=== PATIENT | female | born 1935 | race Two or more races ===

== ENCOUNTER 2019-09-15 19:32 | Inpatient (IN) | payer OTHER ==
[~2019-09-15] VITALS: Ht 165.1 cm; Wt 45.4 kg
[2019-09-15] MEDS ORDERED: ZOFRAN8 MG PO (19:48)
[2019-09-15] MEDS ORDERED: PERCOCET 5-3251 TAB PO (19:49)
[2019-09-15] MEDS ORDERED: BACLOFEN10 MG PO (19:49)
[2019-09-15] MEDS ORDERED: WELLBUTRIN XL150 M1 PO (19:50)
[2019-09-15] MEDS ORDERED: ROPINIROLE HCL0.5 MG PO (19:50)
[2019-09-15] MEDS ORDERED: CYCLOBENZAPRINE5 MG PO (19:50)
[2019-09-15] MEDS ORDERED: COUMADIN2.5 MG PO (19:51)
[2019-09-15] MEDS ORDERED: ATARAX 25 MG TA25 MG PO (19:51)
[2019-09-15] MEDS ORDERED: FLUTICASONE PRO16 GM NASAL (19:52)
[2019-09-15] MEDS ORDERED: PEPTO-BISM525 MG/15 PO (19:52)
[2019-09-15] MEDS ORDERED: VENTOLIN HFA [SP8 GM INH (19:53)
[2019-09-15] MEDS ORDERED: TRELEGY ELLIPT1 EACH INH (19:53)
[2019-09-15] MEDS ORDERED: IPRAT-ALBUT 0.5-3 ML UPD (19:55)
--- NOTE | 2019-09-15 19:59 | NUR ---
CALLED AND SPOKE TO HOSPICE NURSE MARCOS- WILL BE HERE IN APPROX 1 HOUR TO WRITE ADMISSION ORDERS.
--- NOTE | 2019-09-15 20:50 | NUR ---
PT AWAKE IN BED. KEEPS STATING "IT'S BEEPING." DOES SHAKE HEAD YES WHEN ASKED IF SHE WAS IN PAIN. PAIN MED ADMINISTERED. BED ALARM ATTACHED TO PATIENT. RAILS UP X 2. CALL LIGHT IN REACH.
[2019-09-15 21:41] VITALS: BP 133/70
[2019-09-15 23:42] VITALS: BP 128/71
--- NOTE | 2019-09-16 00:58 | NUR ---
PLACED 18 GUAGE NEVILLE CATHETER PER ORDER WITH IMMEDIATE RETURN OF YELLOW / CLOUDY URINE.
[2019-09-16 02:20] VITALS: BP 130/57; BMI 16.6
--- NOTE | 2019-09-16 07:36 | NUR ---
PATIENT IS YELLING OUT HELP ME AND ROLLING IN BED. MEDS ORDERED FOR PAIN PER MAR.
[2019-09-16 08:28] VITALS: BP 104/54
--- NOTE | 2019-09-16 08:55 | NUR ---
YELLING OUT HELP AGAIN, SAYING IT HURT. VERY ANXIOUS TRYING TO GET OUT OF BED. MEDS PER MAR.RESPIRATIONS LABORED AND VERY WET SOUNDING,MEDS PER MAR.
--- NOTE | 2019-09-16 14:25 | NUR ---
RESTING, WITHOUT SIGNS OF DISTRESS
--- NOTE | 2019-09-16 15:24 | NUR ---
RESTING IN BED, NO DISTRESS NOTED, RESEARCH EXECUTIVE IN PLACE INFUSING AT 0.5 CONT. CONT TO MONITOR, TURN PRN
--- NOTE | 2019-09-16 19:00 | NUR ---
BEDSIDE REPORT RECEIVED AND CARE OF PT ASSUMED. PT LYING IN SUPINE POSITION WITH EYES CLOSED. O2 IN USE VIA NC AT 4L. IV TO LEFT WRIST PATENT WITH NS INFUSING AT KVO, AND DILAUDID LEAD QUALITY CONTROL TECHNICIAN IN USE FOR PAIN. NEVILLE CATHETER DRAINING TO GRAVITY WITH DARK URINE IN COLLECTION BAG. WILL MONITOR FOR NEEDS.
[2019-09-16 20:00] VITALS: BP 94/45
--- NOTE | 2019-09-16 21:23 | NUR ---
SPO2 DOWN TO 75% WITH NC IN NOSE...PT IS MOUTH BREATHING SO I MOVED THE NC TO HER MOUTH...SPO2 UP TO 89% AT THIS TIME.
--- NOTE | 2019-09-17 00:45 | NUR ---
GAVE TYLENOL SUPPOSITORY FOR ELEVATED TEMP PER PRN ORDER. POSITIONED FOR COMFORT.
--- NOTE | 2019-09-17 02:00 | NUR ---
PLACED CONTINUOUS PULSE OX ON PT PORTABLE UNITS NOT MEASURING ACCURATELY DUE TO COLD FINGERS. SPO2 96% W/ PULSE OF 75 AT THIS TIME.
--- NOTE | 2019-09-17 07:24 | NUR ---
PT RESTING PEACEFULLY EVEN RISE AND FALL OF CHEST, O2 AT 6L HF, IV IN LEFT WRIST N/S AT 30 CONTINUOUS RESERVATION MANAGER, NEVILLE IN PLACE, CL NEXT TO PT, ASSUME PT CARE
--- NOTE | 2019-09-17 07:48 | NUR ---
PER BROADCAST FIELD SUPERVISOR, PT TEMP AXILLAR IS 104.3, PT IS HOSPICE PT WILL PAGE HOSPICE AND NOTIFY. CONTINUE WITH PLAN OF CARE
[2019-09-17 08:25] VITALS: BP 90/42
[2019-09-17 10:53] VITALS: Ht 165.1 cm; Wt 45.4 kg
--- NOTE | 2019-09-17 15:43 | NUR ---
TURNED PT TO RT SIDE, PILLOW BEHIND BACK, NEVILLE IN PLACE, CONTINUE WITH PLAN OF CARE
--- NOTE | 2019-09-17 18:03 | NUR ---
I have reviewed this patient and I concur with the Shift Assessment completed by the Licensed Practical Nurse today this shift.
--- NOTE | 2019-09-17 19:00 | NUR ---
BEDSODE REPORT RECEIVED AND CARE OF PT ASSUMED. PT AGONAL BREATHING WITH O2 SAT OF 85% WITH O2 IN USE VIA NC AT 6L. WILL CONTINUE TO MONITOR.
[2019-09-17 20:14] VITALS: BP 103/40
--- NOTE | 2019-09-17 20:45 | NUR ---
PT WITH WORSENING AGONAL RESPIRATIONS...THIS NURSE AND CLOVER CASE ARE STAYING AT BEDSIDE.
--- NOTE | 2019-09-17 20:55 | NUR ---
PT STOPPED BREATHING AND NO HEARTBEAT DETECTED. CALLED [facility] DIGITAL OPERATIONS ANALYST NURSE.
--- NOTE | 2019-09-17 20:57 | NUR ---
CALLED DIE REPAIR MACHINIST.
--- NOTE | 2019-09-17 21:50 | NUR ---
HOSPICE NURSE, MARCOS, HERE TO PRONOUNCE.
--- NOTE | 2019-09-17 21:51 | NUR ---
PRONOUNCED AT 2151.
--- NOTE | 2019-09-17 21:58 | NUR ---
MARCOS, HOSPICE NURSE, CALLED ALESHIA (SON) TO ADVISE OF PT'S PASSING.
--- NOTE | 2019-09-17 22:10 | NUR ---
CALLED [facility] AND SPOKE WITH JOHN KLINE. 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 REFERENCE NUMBER: [id number]
--- NOTE | 2019-09-17 22:10 | NUR ---
VIDEO GAME MAKER CALLED BY MARCOS, HOSPICE NURSE.
--- NOTE | 2019-09-17 22:21 | NUR ---
POST CARE PERFORMED BY HOSPICE NURSEMARCOS.
--- NOTE | 2019-09-17 22:26 | NUR ---
[facility] CALLED TO PHYSICIAN NON INVASIVE CARDIOLOGIST .
--- NOTE | 2019-09-17 22:30 | NUR ---
NOTIFIED CLINICAL EVALUATOR THAT HOME WAS ON THEIR WAY TO LEAD SYSTEMS DEVELOPER PATIENT.
--- NOTE | 2019-09-17 23:41 | NUR ---
BODY RELEASED TO [facility].
--- NOTE | 2019-09-17 23:46 | NUR ---
FAXED RECORD OF AND COMPUTER NETWORK ENGINEER REPORT TO TRACK GREASER.
== END 2019-09-17 21:51 | DRG 951 ==
LOC: D.ER 19:32 → D.MS 09-16 00:21
PROVIDERS: ADMIT Legal Medicine; ATTEND Legal Medicine
DX: Z51.5 Encounter for palliative care (principal)